=== PATIENT | female | born 1990 | race Caucasian/White ===

== ENCOUNTER 2022-03-20 02:55 | Emergency (ER) | payer BC ==
[~2022-03-20] VITALS: Ht 170.2 cm; Wt 69.7 kg
[2022-03-20 03:07] VITALS: BP 118/67
[2022-03-20] MEDS ORDERED: IBUP-2077 MT (03:37)
[2022-03-20] MEDS ORDERED: DEXAMETHASONE 10 MG/ML VIAL IM ONE (03:45)
[2022-03-20] MEDS ORDERED: KETOROLAC 15MG/ML VIAL IM ONE (03:45)
[2022-03-20] MEDS ORDERED: PENICILLIN G BENZATHINE 1,200,000 UNITS/2ML SYR IM ONE (03:45)
== END 2022-03-20 03:59 | disposition home or self-care (01) ==
LOC: ER 02:55
DX: J02.9 Acute pharyngitis, unspecified (principal); Z98.890 Other specified postprocedural states
CPT/HCPCS: 81025; 87430; 96372; 99284; J0561; J1100; J1885